=== PATIENT | male | born 1975 | race Caucasian/White ===

== ENCOUNTER 2025-06-06 22:27 | Inpatient (IN) | payer OTHER ==
[~2025-06-06] VITALS: Ht 182.9 cm; Wt 108.3 kg
[2025-06-06 23:00] VITALS: PULSE 103; RESP 27; O2SAT 93
[2025-06-06] MEDS: ALBUTEROL SULF 2.5 MG/0.5ML(0.5%) NEB SOLN NEB ONE (23:05)
[2025-06-06] MEDS: IPRATROPIUM BROM 0.5 MG/2.5ML INH SOL NEB ONE (23:05)
--- NOTE | 2025-06-06 23:28 | DVH ---
CHEST RADIOGRAPH INDICATION: SOB TECHNIQUE: Single frontal view of the chest was obtained COMPARISON: None FINDINGS: Lungs and pleural spaces are clear. Cardiac silhouette and humble are within normal limits. Bones and soft tissues demonstrate no significant abnormality. IMPRESSION: No acute disease.
[2025-06-06 23:43] LABS: Hematocrit 39.2 % (41.0-53.0); Hemoglobin 13.2 g/dL (13.5-17.5); Mean Corpuscular Hemoglobin 31.0 pg (28.0-32.0); Mean Corpuscular Volume 92.4 fL (80.0-100.0); Nucleated Red Blood Cells % 0.0 %
[2025-06-06 23:54] LABS: INR 1.04 (0.9-1.15); Prothrombin Time 11.0 sec (9.3-11.8)
[2025-06-07] VITALS (18 sets, daily range): BP systolic 114–139; BP diastolic 78–89; PULSE 64–94; RESP 16–20; TEMP 97.6–99.2; O2SAT 91–100
[2025-06-07 00:01] LABS: Alkaline Phosphatase 70 U/L (46-116); Anion Gap 10 (5-15); BUN/Creatinine Ratio 10.2 (10.0-20.0); Blood Urea Nitrogen 11 mg/dL (9-23); Calcium 9.9 mg/dL (8.7-10.4); Carbon Dioxide 23 mmol/L (20-31); Chloride 105 mmol/L (98-107); Potassium 3.9 mmol/L (3.5-5.1); Sodium 138 mmol/L (136-145); Total Protein 7.7 g/dL (5.7-8.2)
[2025-06-07 00:02] LABS: Bilirubin, Total 0.3 mg/dL (0.2-1.0)
[2025-06-07 00:04] LABS: Alanine Aminotransferase 48 U/L (7-40); Albumin 5.1 g/dL (3.2-4.8); Glucose 126 mg/dL (74-106)
[2025-06-07] MEDS: IOHEXOL 350 MG/ML 100ML IJ ONE (00:32)
--- NOTE | 2025-06-07 00:57 | ED.PDOC ---
SOB-HPI HPI Comments 49-year-old male brought in by , since the patient was having shortness of breath which started three months morning. Patient has been dealing with recurrent sinus infection over the last few days. Patient was having wheezing and struggling breathing. With the patient went to the urgent care and had two breathing treatments done, patient states he did have some moderate relief within just a few hours difficulty breathing came back. Patient arrived diaphoretic, tachypneic, struggling to breathe. O2 saturation of 90% on room air. Chief Complaint: Shortness of Breath Time Seen by MD: 22:36 Reviewed notes: Nurses Notes Information Source: Patient Mode of Arrival: Ambulatory Past Medical History PAST MEDICAL HISTORY: HTN Surgical History: Denies all surgeries Constitutional: denies: chills, diaphoresis, fatigue, fever, malaise, sweats, weakness, others EENTM: denies: blurred vision, double vision, ear bleeding, ear discharge, ear drainage, ear pain, ear ringing, eye pain, eye redness, hearing loss, mouth pain, mouth swelling, nasal discharge, nose bleeding, nose congestion, nose pain, photophobia, tearing, throat pain, throat swelling, voice changes, others Respiratory: reports: cough, SOB at rest, wheezing Cardiovascular: denies: chest pain, dizzy spells, diaphoresis, Dyspnea on exe rtion, edema, irregular heart beat, left arm pain, lightheadedness, palpitations, PND, syncope, others Gastrointestinal: denies: abdomen distended, abdominal pain, blood streaked bowels, constipated, diarrhea, dysphagia, difficulty swallowing, hematemesis, melena, nausea, poor appetite, poor fluid intake, rectal bleeding, rectal pain, vomiting, others Genitourinary: denies: burning, dysuria, flank pain, frequency, hematuria, incontinence, penile discharge, penile sore, pain, testicle pain, testicle swelling, urgency, others Neurological: denies: dizziness, fainting, headache, left sided numbness, left sided weakness, numbness, paresthesia, pre-existing deficit, right sided numbness, right sided weakness, seizure, speech problems, tingling, tremors, weakness, others Musculoskeletal: denies: back pain, gout, joint pain, joint swelling, muscle pain, muscle stiffness, neck pain, others Integumetry: denies: bruises, change in color, change in hair/nails, dryness, laceration, lesions, lumps, rash, wounds, others Allergic/Immunocompromised: denies: Difficulty Healing, Frequent Infections, Hives, Itching, others Physical Exam General Appearance: No Apparent Distress, Normal HEENT: Normal ENT Inspection, Pharynx Normal, TMs Normal Neck: Full Range of Motion, Non-Tender, Normal, Normal Inspection Respiratory: Chest Non-Tender, Respiratory Distress, Wheezing (Bilateral lung kuhn) Cardiovascular: No Edema, No JVD, No Murmur, No Gallop, Normal Peripheral Pulses, Regular Rate/Rhythm Breast Exam: Deferred Gastrointestinal: No Organomegaly, Non Tender, No Pulsatile Mass, Normal Bowel Sounds, Soft Genitalia: Deferred Pelvic: Deferred Rectal: Deferred Extremities: No calf tenderness, Normal capillary refill, Normal inspection, Normal range of motion, Non-tender, No pedal edema Musculoskeletal : Apperance: Normal Neurologic: Alert, cement mixer driver II-XII nml as Tested, No Motor Deficits, Normal Affect, Normal Mood, No Sensory Deficits Cerebellar Function: Normal Reflexes: Normal Skin: Dry, Normal Color, Warm Lymphatic: No Adenopathy Was a procedure done? Was a procedure done?: No Differential Dx Differential Diagnosis: Hyponatremia, Panic Attack, Pneumonia, Pulmonary Embolism, Respiratory Distress X-Ray, Labs, Meds, VS Vital Signs Date Time Temp Pulse Resp B/P (MAP) Pulse Ox O2 Delivery O2 Flow Rate FiO2 06/06/25 23:05 26 94 Nasal Cannula* 3 32 06/06/25 22:48 97 06/06/25 22:28 98.9 110 24 141/93 90 98.9 Lab Test 06/06/25 23:08 Range/Units White Blood Count 9.4 4.4-10.8 10^3/uL Red Blood Count 4.25 L 4.5-5.90 10^6/uL Hemoglobin 13.2 L 13.5-17.5 g/dL Hematocrit 39.2 L 41.0-53.0 % Mean Corpuscular Volume 92.4 80.0-100.0 fL Mean Corpuscular Hemoglobin 31.0 28.0-32.0 pg Mean Corpuscular Hemoglobin Concent 33.6 32.0-36.0 g/dL Red Cell Distribution Width 13.2 11.8-14.3 % Platelet Count 243 140-450 10^3/uL Mean Platelet Volume 8.7 6.9-10.8 fL Neutrophils (%) (Auto) 94.8 H 37.0-80.0 % Lymphocytes (%) (Auto) 1.7 L 10.0-50.0 % Monocytes (%) (Auto) 3.1 0.0-12.0 % Eosinophils (%) (Auto) 0.1 0.0-7.0 % Basophils (%) (Auto) 0.3 0.0-2.0 % Neutrophils # (Auto) 8.9 H 1.6-8.6 10 ^3/uL Lymphocytes # (Auto) 0.2 L 0.4-5.4 10 ^3/uL Monocytes # (Auto) 0.3 0-1.3 10 ^3/uL Eosinophils # (Auto) 0 0-0.8 10 ^3/uL Basophils # (Auto) 0 0-0.2 10 ^3/uL Nucleated Red Blood Cells 0.0 % Prothrombin Time 11.0 9.3-11.8 sec Prothrombin Time INR 1.04 0.9-1.15 D-Dimer, Quantitative 0.26 0.0-0.49 mg/L FEU Sodium Level 138 136-145 mmol/L Potassium Level 3.9 3.5-5.1 mmol/L Chloride Level 105 98-107 mmol/L Carbon Dioxide Level 23 20-31 mmol/L Anion Gap 10 5-15 Blood Urea Nitrogen 11 9-23 mg/dL Creatinine 1.08 0.700-1.30 mg/dL Glomerular Filtration Rate Calc 84 >90 mL/min BUN/Creatinine Ratio 10.2 10.0-20.0 Serum Glucose 126 H 74-106 mg/dL Lactic Acid Level 1.5 0.4-2.0 mmol/L Calcium Level 9.9 8.7-10.4 mg/dL Total Bilirubin 0.3 0.2-1.0 mg/dL Aspartate Amino Transferase (AST) 27 13-40 U/L Alanine Aminotransferase (ALT) 48 H 7-40 U/L Alkaline Phosphatase 70 46-116 U/L B-Type Natriuretic Peptide 32.60 0-100 pg/mL Total Protein 7.7 5.7-8.2 g/dL Albumin 5.1 H 3.2-4.8 g/dL Current Medications Medications (Trade) Dose Ordered Sig/Oralia Route Start Time Stop Time Status Last Admin Albuterol (Ventolin Medneb) 2.5 mg ONCE ONCE NEB 06/06/25 23:00 06/06/25 23:01 DC 06/06/25 23:05 Ipratropium Rarden (Atrovent Medneb) 0.5 mg ONCE ONCE NEB 06/06/25 23:00 06/06/25 23:01 DC 06/06/25 23:05 X-Ray, Labs, Meds, VS Comment Patient will be admitted for acute hypoxia and respiratory distress Patient unable to maintain O2 saturation above 90% on 4 L nasal cannula Pending CTA Negative dimer Chest x-ray was negative Patient does state he has good relief of the shortness of breath after breathing treatments Time of 1ST Reevaluation: 00:56 Reevaluation 1ST: Improved Patient Education/Counseling: Diagnosis, Treatment, Need For Follow Up Family Education/Counseling: Diagnosis SEPSIS Sepsis Screen Date sepsis recognized/suspect: Jun 06, 2025 Time Sepsis recognized/suspect: 2233 Recent Procedure: No On Antibiotic Therapy: Yes Respiratory Rate >20: Yes Heart Rate >90: Yes Temp<36 C (96.8 F) or >38.3 C: No SBP <90 or MAP <65 mmHG: No New Acute Mental Status Change: No Is the patient on CPAP, BIPAP,: No Physician Orders Chest Portable (06/06/25 22:36) Blood Culture (06/06/25 22:36) Electrocardigram (06/06/25 22:36) Ct Angio Chest Contrast (06/06/25 22:46) Drug Screen (06/06/25 22:46) Morphine Sulfate Injection (06/07/25 01:00) Ondansetron Hcl (Zofran) (06/07/25 01:00) Albuterol Medneb (Ventolin Medneb) (06/07/25 01:00) Ipratropium Medneb (Atrovent Medneb) (06/07/25 01:00) Methylprednisolone Sod Succ (Solu Medrol (06/07/25 01:00) Vital Signs Date Time Temp Pulse Resp B/P (MAP) Pulse Ox O2 Delivery O2 Flow Rate FiO2 06/06/25 23:05 26 94 Nasal Cannula* 3 32 06/06/25 22:48 97 06/06/25 22:28 98.9 110 24 141/93 90 98.9 Laboratory Tests Test 06/06/25 23:08 Lactic Acid Level 1.5 mmol/L (0.4-2.0) White Blood Count 9.4 10^3/uL (4.4-10.8) Medications Medications Dose Ordered Sig/Oralia Route Start Time Stop Time Status Last Admin Dose Admin Albuterol 2.5 mg ONCE ONCE NEB 06/06/25 23:00 06/06/25 23:01 DC 06/06/25 23:05 Ipratropium Rarden 0.5 mg ONCE ONCE NEB 06/06/25 23:00 06/06/25 23:01 DC 06/06/25 23:05 Departure 1 Departure Time of Disposition: 00:55 Impression: Primary Impression: Respiratory distress Additional Impressions: Hypoxia Bronchitis Disposition: 01 HOME / SELF CARE / HOMELESS Condition: Fair Discharged With: Self Critical Care Note Critical Care Time?: No Stability Stability form required: No Heart Score Heart Score: Heart Score Response (Comments) Value History N/A 0 EKG N/A 0 Age N/A 0 Risk Factors N/A 0 Troponin N/A 0 Total 0 BRITTANY MONTANAP Jun 07, 2025 00:57
[2025-06-07] MEDS: IPRATROPIUM BROM 0.5 MG/2.5ML INH SOL NEB ONE (01:08)
[2025-06-07] MEDS: ALBUTEROL SULF 2.5 MG/0.5ML(0.5%) NEB SOLN NEB ONE (01:08)
[2025-06-07] MEDS: MORPHINE SULFATE 4 MG/ML SYR/VIAL IV ONE (01:16)
[2025-06-07] MEDS: methylPREDNISolone SOD SUCC 125 MG/2 ML VL IM ONE (01:17)
--- NOTE | 2025-06-07 01:17 | ECG ---
[facility] Test Date: 2025-06-06 Test Time: 22:48:15 Pat Name: SARA NOE Department: [facility] ED Room: 0209T Gender: M [employer]: : 1975 Requested By: LIANET PAREKH Order Number: [id number] Reading MD: Reggie Ambrocio Measurements Intervals Correll Rate: 97 P: 71 [place]: 165 QRS: 78 QRSD: 93 T: 65 QT: 365 QTc: 464 Interpretive Statements Sinus rhythm Abnormal R-wave progression, early transition Electronically Signed On 06-10-2025 15:21:51 PST by Reggie Ambrocio Please click the below link to view image of tracing.
[2025-06-07] MEDS: ONDANSETRON HCL 4 MG/2 ML VIAL IV ONE (01:21)
--- NOTE | 2025-06-07 01:29 | DVH ---
CTA Chest with intravenous contrast INDICATION: sob COMPARISON: XY CHEST PORTABLE on DOS: 06/06/25 TECHNIQUE: Multidetector spiral CTA of the chest was performed of the chest with intravenous contrast. PULMONARY ANGIOGRAPHY PROTOCOL was utilized using a bolus- tracking technique centered on the main pulmonary artery. Axial, coronal and sagittal multiplanar and MIP reformats were performed. Radiation Dose : 1. Chest: CTDI volume is 27.03 mGy. Dose-length product is 1016.82 mGy*cm The dose indicators for CT are the volume Computed Tomography (CT) Dose Index (CTDIvol) and the Dose Length Product (DLP), and are measured in units of mGy and mGy-cm, respectively. These indicators are not patient dose, but values generated from the CT scanner acquisition factors. The report includes radiation exposure data for exposures received during this examination. FINDINGS: Pulmonary artery: No pulmonary embolism Lower neck: Normal thyroid. Lungs: No focal consolidation, pleural effusion or pneumothorax. Heart/Vascular Structures: Normal heart size. No pericardial effusion. Lymph Nodes: No adenopathy Pleura: No pleural effusion or significant pneumothorax. Musculoskeletal: No acute osseous abnormality. Soft tissues: Normal. Upper abdomen: Limited portions of the upper abdomen are unremarkable. IMPRESSION: No pulmonary embolus or other acute abnormality.
[2025-06-07] MEDS ORDERED: DOCUSATE SOD 100 MG CAP PO PRN (02:00)
[2025-06-07] MEDS ORDERED: ONDANSETRON HCL 4 MG/2 ML VIAL IV PRN (02:00)
[2025-06-07] MEDS ORDERED: ACETAMINOPHEN 325 MG TAB PO PRN (02:00)
[2025-06-07] MEDS: SODIUM CHLORIDE 0.9% 1,000 ML IV SCH (02:30)
--- NOTE | 2025-06-07 02:37 | DVHHP2 ---
History of Present Illness Reason for Visit: Acute respiratory distress History of Present Illness The patient is a 49-year-old male with past medical history of hypertension and hyperlipidemia who presented to [facility] ED with complaint of shortness of breaths. Patient reports that he has been experiencing difficulty breathing associated with cough, wheezing, increased work of breathing, getting worse that prompted this visit. Patient was seen and evaluated in the ED, laboratory data shows WBC 9.4, hemoglobin 13.2, hematocrit 39.2, platelets 243, sodium 138, potassium 3.9, BUN 11, creatinine 1.08, GFR 84, glucose 124, calcium 9.9, BNP 32.60, D-dimer 0.26, AST 27, ALT 48, blood pressure 115/69, heart rate 97, temperature 98.9 F, O2 saturation 90% on oxygen. Chest x-ray show no acute disease. Patient was started on IV Solu-Medrol, please see medication orders section in the computer. On my assessment, patient denied chest pain, no headache, dizziness, diaphoresis, currently on oxygen, no diarrhea, nausea, vomiting, fever, no chills. Patient was admitted for further evaluation and medical management. Past Medical History HTN, HLD Past Surgical History Denies all surgeries Family History Reviewed, noncontributory to the management of this case. Past Social History The patient lives at home, denies smoking, alcohol or illicit drugs abuse. Review of Systems Constitutional: Yes: Weakness; No: Fever, Chills, Sweats, Malaise, Other Eyes: No: Pain, Vision change, Conjunctivae inflammation, Eyelid inflammation, Other, Redness ENT: No: Ear pain, Ear discharge, Nose pain, Nose discharge, Nose congestion, Mouth pain, Mouth swelling, Throat pain, Throat swelling, Other Respiratory: Cough, Shortness of breath, Wheezing, Other (SOB at rest); No: Dry, SOB with excertion, Hemoptysis, Pleuritic Pain, Sputum, Wheezing Cardiovascular: No: Chest Pain, Palpitations, Orthopnea, Paroxysmal Noc. Dyspnea, Edema, Lt Headedness, Other Gastrointestinal: No: Nausea, Vomiting, Abdominal Pain, Diarrhea, Constipation, Melena, Hematochezia, Other Genitourinary: No Dysuria, No Frequency, No Incontinence, No Hematuria, No Retention, No Other Musculoskeletal: No: other, neck pain, shoulder pain, arm pain, back pain, hand pain, leg pain, foot pain Skin: No: Rash, Lesions, Jaundice, Bruising, Other Neurological: No: Weakness, Numbness, Incoordination, Change in speech, Confusion, Seizures, Other Allergies: Coded Allergies: Aspirin (Verified Allergy, Unknown, 06/06/25) Medications Current Medications Medications Dose Ordered Sig/Oralia Route Start Time Stop Time Status Last Admin Dose Admin Methylprednisolone Sodium Succinate 40 mg Q8HR IV 06/07/25 06:00 Famotidine 20 mg Q12HR IV 06/07/25 10:00 Albuterol 2.5 mg Q4HPRN PRN NEB 06/07/25 02:00 Ipratropium [place] 0.5 mg Q4HPRN PRN NEB 06/07/25 02:00 Metoprolol Tartrate 25 mg BID PO 06/07/25 10:00 Sodium Chloride 1,000 ml @ 60 mls/hr [id number] IV 06/07/25 02:00 06/07/25 02:30 60 MLS/HR Acetaminophen/ Hydrocodone Bitart 1 tab Q4HP PRN PO 06/07/25 02:00 Ondansetron HCl 4 mg Q4HP PRN IV 06/07/25 02:00 Docusate Sodium 100 mg BIDPRN PRN PO 06/07/25 02:00 Acetaminophen 650 mg Q6HP PRN PO 06/07/25 02:00 Exam Vital Signs Vital Signs Date Time Temp Pulse Resp B/P (MAP) Pulse Ox O2 Delivery O2 Flow Rate FiO2 06/07/25 01:57 96 19 117/62 06/07/25 01:08 90 Nasal Cannula* 3 32 06/06/25 22:28 98.9 98.9 General Appearance: Alert, Oriented X3, Cooperative, No acute distress HEENT: Atraumatic, PERRLA, EOMI, Mucous membr. moist/pink Respiratory: Normal air movement, Other (Wheezing) Cardiovascular: Regular rate, Normal S1, Normal S2, No murmurs Abdominal: Normal bowel sounds, Soft, No tenderness, No hepatospenomegaly, No masses Extremities: No clubbing, No cyanosis, No edema, Normal pulses, No tenderness/swelling Skin: No rashes, No significant lesion Neuro: Normal gait, Strength at 5/5 X4 ext, Normal tone, Sensation intact, Cranial nerves 3-12 NL, Reflexes 2+ Psych/Mental Status: Mental status NL, Mood NL Labs/Xrays Labs Test 06/06/25 23:08 Range/Units White Blood Count 9.4 4.4-10.8 10^3/uL Red Blood Count 4.25 L 4.5-5.90 10^6/uL Hemoglobin 13.2 L 13.5-17.5 g/dL Hematocrit 39.2 L 41.0-53.0 % Mean Corpuscular Volume 92.4 80.0-100.0 fL Mean Corpuscular Hemoglobin 31.0 28.0-32.0 pg Mean Corpuscular Hemoglobin Concent 33.6 32.0-36.0 g/dL Red Cell Distribution Width 13.2 11.8-14.3 % Platelet Count 243 140-450 10^3/uL Mean Platelet Volume 8.7 6.9-10.8 fL Neutrophils (%) (Auto) 94.8 H 37.0-80.0 % Lymphocytes (%) (Auto) 1.7 L 10.0-50.0 % Monocytes (%) (Auto) 3.1 0.0-12.0 % Eosinophils (%) (Auto) 0.1 0.0-7.0 % Basophils (%) (Auto) 0.3 0.0-2.0 % Neutrophils # (Auto) 8.9 H 1.6-8.6 10 ^3/uL Lymphocytes # (Auto) 0.2 L 0.4-5.4 10 ^3/uL Monocytes # (Auto) 0.3 0-1.3 10 ^3/uL Eosinophils # (Auto) 0 0-0.8 10 ^3/uL Basophils # (Auto) 0 0-0.2 10 ^3/uL Nucleated Red Blood Cells 0.0 % Prothrombin Time 11.0 9.3-11.8 sec Prothrombin Time INR 1.04 0.9-1.15 D-Dimer, Quantitative 0.26 0.0-0.49 mg/L FEU Sodium Level 138 136-145 mmol/L Potassium Level 3.9 3.5-5.1 mmol/L Chloride Level 105 98-107 mmol/L Carbon Dioxide Level 23 20-31 mmol/L Anion Gap 10 5-15 Blood Urea Nitrogen 11 9-23 mg/dL Creatinine 1.08 0.700-1.30 mg/dL Glomerular Filtration Rate Calc 84 >90 mL/min BUN/Creatinine Ratio 10.2 10.0-20.0 Serum Glucose 126 H 74-106 mg/dL Lactic Acid Level 1.5 0.4-2.0 mmol/L Calcium Level 9.9 8.7-10.4 mg/dL Total Bilirubin 0.3 0.2-1.0 mg/dL Aspartate Amino Transferase (AST) 27 13-40 U/L Alanine Aminotransferase (ALT) 48 H 7-40 U/L Alkaline Phosphatase 70 46-116 U/L B-Type Natriuretic Peptide 32.60 0-100 pg/mL Total Protein 7.7 5.7-8.2 g/dL Albumin 5.1 H 3.2-4.8 g/dL PATIENT: SARA NOE ACCT: [id number] UNIT: [id number] : 1975 LOC: ER ROOM / BED: / AGE / SEX: 49 / M ADM STATUS: REG ER SERVICE 45 ORDERING PHYSICIAN: BRITTANY MONTANA PROCEDURE(s): CTACH - CT ANGIO CHEST CONTRAST REASON: sob ORDER NUMBER(s): [id number], ACCESSION NUMBER(s): [id number] CTA Chest with intravenous contrast INDICATION: sob COMPARISON: XY CHEST PORTABLE on DOS: 06/06/25 TECHNIQUE: Multidetector spiral CTA of the chest was performed of the chest with intravenous contrast. PULMONARY ANGIOGRAPHY PROTOCOL was utilized using a bolus- tracking technique centered on the main pulmonary artery. Axial, coronal and sagittal multiplanar and MIP reformats were performed. Radiation Dose : 1. Chest: CTDI volume is 27.03 mGy. Dose-length product is 1016.82 mGy*cm The dose indicators for CT are the volume Computed Tomography (CT) Dose Index (CTDIvol) and the Dose Length Product (DLP), and are measured in units of mGy and mGy-cm, respectively. These indicators are not patient dose, but values generated from the CT scanner acquisition factors. The report includes radiation exposure data for exposures received during this examination. FINDINGS: Pulmonary artery: No pulmonary embolism Lower neck: Normal thyroid. Lungs: No focal consolidation, pleural effusion or pneumothorax. Heart/Vascular Structures: Normal heart size. No pericardial effusion. Lymph Nodes: No adenopathy Pleura: No pleural effusion or significant pneumothorax. Musculoskeletal: No acute osseous abnormality. Soft tissues: Normal. Upper abdomen: Limited portions of the upper abdomen are unremarkable. IMPRESSION: No pulmonary embolus or other acute abnormality. ORDERING PHYSICIAN: LIANET PAREKH MD PROCEDURE(s): CXRP - CHEST PORTABLE REASON: SOB ORDER NUMBER(s): [id number], ACCESSION NUMBER(s): [id number] CHEST RADIOGRAPH INDICATION: SOB TECHNIQUE: Single frontal view of the chest was obtained COMPARISON: None FINDINGS: Lungs and pleural spaces are clear. Cardiac silhouette and humble are within normal limits. Bones and soft tissues demonstrate no significant abnormality. IMPRESSION: No acute disease. SEPSIS Sepsis Screen Date sepsis recognized/suspect: Jun 06, 2025 Time Sepsis recognized/suspect: 2233 Recent Procedure: No On Antibiotic Therapy: Yes Respiratory Rate >20: Yes Heart Rate >90: Yes Temp<36 C (96.8 F) or >38.3 C: No SBP <90 or MAP <65 mmHG: No New Acute Mental Status Change: No Is the patient on CPAP, BIPAP,: No Physician Orders Chest Portable (06/06/25 22:36) Blood Culture (06/06/25 22:36) Ct Angio Chest Contrast (06/06/25 22:46) Drug Screen (06/06/25 22:46) Complete Blood Count (06/07/25 04:00) Comprehensive Metabolic Panel (06/07/25 04:00) Methylprednisolone Sod Succ (Solu Medrol (06/07/25 06:00) Famotidine Injection (Pepcid Injection) (06/07/25 10:00) Albuterol Medneb (Ventolin Medneb) (06/07/25 02:00) Ipratropium Medneb (Atrovent Medneb) (06/07/25 02:00) Metoprolol Tartrate Tablet (Lopressor Ta (06/07/25 10:00) Allergies (06/07/25 01:49) Code Status (06/07/25 01:49) Sodium Chloride 0.9% (06/07/25 02:00) Oxygen Per Hour (06/07/25 01:49) Hydrocodone-Acet 5/325mg Tab ([place] 5/32 (06/07/25 02:00) Ondansetron Hcl (Zofran) (06/07/25 02:00) Docusate Sodium Capsule (Colace Capsule) (06/07/25 02:00) Complete Blood Count (06/08/25 04:00) Comprehensive Metabolic Panel (06/08/25 04:00) Cardiac Diet-2gna,Lofat,Lochol (06/07/25 Breakfast) Condition: Serious (06/07/25 01:49) Acetaminophen Tablet (Tylenol Tablet) (06/07/25 02:00) Bedrest With Bathroom Privileg (06/07/25 01:49) Sequential Compression Device (06/07/25 ) Admit (06/07/25 02:35) Nitroglycerin Sublingual (Ntrostat Subli (06/07/25 02:45) Morphine Sulfate Injection (06/07/25 02:45) Stat Ekg For Chest Pain (06/07/25 02:35) Notify Of Changes From Base (06/07/25 02:35) Slag Mixer For 24 Hours (06/07/25 02:35) Emergency Dysrhythmia Protocol (06/07/25 02:35) Rhythm Strips Once Every Shift (06/07/25 02:35) Oxygen By Nasal Cannula (06/07/25 02:35) Vital Signs Date Time Temp Pulse Resp B/P (MAP) Pulse Ox O2 Delivery O2 Flow Rate FiO2 06/07/25 01:57 96 19 117/62 06/07/25 01:16 107 16 115/69 06/07/25 01:08 22 90 Nasal Cannula* 3 32 06/06/25 23:05 26 94 Nasal Cannula* 3 32 06/06/25 22:48 97 06/06/25 22:28 98.9 110 24 141/93 90 98.9 Laboratory Tests Test 06/06/25 23:08 Lactic Acid Level 1.5 mmol/L (0.4-2.0) White Blood Count 9.4 10^3/uL (4.4-10.8) Medications Medications Dose Ordered Sig/Oralia Route Start Time Stop Time Status Last Admin Dose Admin Albuterol 2.5 mg ONCE ONCE NEB 06/06/25 23:00 06/06/25 23:01 DC 06/06/25 23:05 2.5 MG Albuterol 2.5 mg ONCE ONCE NEB 06/07/25 01:00 06/07/25 01:01 DC 06/07/25 01:08 2.5 MG Ipratropium [place] 0.5 mg ONCE ONCE NEB 06/06/25 23:00 06/06/25 23:01 DC 06/06/25 23:05 0.5 MG Ipratropium [place] 0.5 mg ONCE ONCE NEB 06/07/25 01:00 06/07/25 01:01 DC 06/07/25 01:08 0.5 MG Methylprednisolone Sodium Succinate 125 mg ONCE ONCE IM 06/07/25 01:00 06/07/25 01:01 DC 06/07/25 01:17 125 MG Morphine Sulfate 4 mg ONCE ONCE IV 06/07/25 01:00 06/07/25 01:01 DC 06/07/25 01:16 4 MG Ondansetron HCl 4 mg ONCE ONCE IV 06/07/25 01:00 06/07/25 01:01 DC 06/07/25 01:21 4 MG Sodium Chloride 1,000 ml @ 60 mls/hr [id number] IV 06/07/25 02:00 06/07/25 02:30 60 MLS/HR Assessment/Plan Assessment/Plan Acute respiratory distress Bronchitis Acute hypoxic respiratory failure Plan 1. Admit to telemetry unit 2. Breathing treatment 3. Pain control management 4. Management of fluids and electrolytes 5. Consultation for hospitalist 6. Diagnostic tests chest x-ray 7. DVT prophylaxis-on SCDs 8. Repeat labs CBC, CMP in a.m. 9. Continue with current medical management 10. Treatment plan discussed with patient and RN. Patient verbalized understanding. Plan discussed with: Patient, Other (RN) My Orders Orders - NILSON MACK DNP Procedure Category Date Status Time Complete Blood Count LAB 06/07/25 Logged 04:00 Comprehensive LAB 06/07/25 Logged Metabolic Panel 04:00 Methylprednisolone PHA 06/07/25 In Process Sod Succ (Solu Medrol 06:00 Famotidine Injection PHA 06/07/25 In Process (Pepcid Injection) 10:00 Albuterol Medneb PHA 06/07/25 In Process (Ventolin Medneb) 02:00 Ipratropium Medneb PHA 06/07/25 In Process (Atrovent Medneb) 02:00 Metoprolol Tartrate PHA 06/07/25 In Process Tablet (Lopressor Ta 10:00 Allergies SETH 06/07/25 In Process 01:49 Code Status CODE 06/07/25 Transmitted 01:49 Sodium Chloride 0.9% PHA 06/07/25 In Process 02:00 Oxygen Per Hour RT 06/07/25 Transmitted 01:49 Hydrocodone-Acet PHA 06/07/25 In Process 5/325mg Tab ([place] 02:00 Ondansetron Hcl PHA 06/07/25 In Process (Zofran) 02:00 Docusate Sodium PHA 06/07/25 In Process Capsule (Colace 02:00 Complete Blood Count LAB 06/08/25 Verified 04:00 Comprehensive LAB 06/08/25 Verified Metabolic Panel 04:00 Cardiac DIET 06/07/25 Transmitted Diet-2gna,Lofat,Lochol Breakfast Condition: Serious SETH 06/07/25 In Process 01:49 Acetaminophen Tablet PHA 06/07/25 In Process (Tylenol Tablet) 02:00 Bedrest With Bathroom SETH 06/07/25 In Process Privileg 01:49 Sequential SETH 06/07/25 In Process Compression Device Admit ADMIT 06/07/25 Verified 02:35 Nitroglycerin [facility] 06/07/25 Verified Sublingual (Ntrostat 02:45 Morphine Sulfate [facility] 06/07/25 Verified Injection 02:45 Stat Ekg For Chest [facility] 06/07/25 Verified Pain 02:35 Notify Md Of Changes [facility] 06/07/25 Verified From Base 02:35 Slag Mixer For [facility] 06/07/25 Verified 24 Hours 02:35 Emergency Dysrhythmia [facility] 06/07/25 Verified Protocol 02:35 Rhythm Strips Once [facility] 06/07/25 Verified Every Shift 02:35 Oxygen By Nasal RT 06/07/25 Verified Cannula 02:35 Problem List: (1) Acute respiratory distress (2) Bronchitis (3) Acute hypoxic respiratory failure Date of Service: Jun 07, 2025 Billing Provider: NILSON MACK DNP Common Visit Codes: [id number] INP/OBS CARE (HIGH) NILSON MACK DNP Jun 07, 2025 02:37
[2025-06-07] MEDS ORDERED: NITROGLYCERIN 0.4 MG SL TAB SL PRN (02:45)
[2025-06-07] MEDS ORDERED: MORPHINE SULFATE 4 MG/ML SYR/VIAL IV PRN (02:45)
[2025-06-07] MEDS: methylPREDNISolone SOD SUCC 40 MG/ML VL IV SCH ×2 (05:25→21:22)
[2025-06-07] MEDS: HYDROcodone-ACET 5/325MG TAB PO PRN (05:25)
[2025-06-07] MEDS: IPRATROPIUM BROM 0.5 MG/2.5ML INH SOL NEB PRN (06:16)
[2025-06-07] MEDS: ALBUTEROL SULF 2.5 MG/0.5ML(0.5%) NEB SOLN NEB PRN (06:16)
[2025-06-07 07:47] LABS: Hematocrit 36.6 % (41.0-53.0); Hemoglobin 12.5 g/dL (13.5-17.5); Mean Corpuscular Hemoglobin 31.2 pg (28.0-32.0); Mean Corpuscular Volume 91.6 fL (80.0-100.0); Nucleated Red Blood Cells % 0.0 %
[2025-06-07 07:53] LABS: Alkaline Phosphatase 65 U/L (46-116); Anion Gap 11 (5-15); BUN/Creatinine Ratio 10.5 (10.0-20.0); Bilirubin, Total 0.3 mg/dL (0.2-1.0); Blood Urea Nitrogen 12 mg/dL (9-23); Calcium 9.5 mg/dL (8.7-10.4); Carbon Dioxide 22 mmol/L (20-31); Chloride 105 mmol/L (98-107); Potassium 4.2 mmol/L (3.5-5.1); Sodium 138 mmol/L (136-145); Total Protein 7.3 g/dL (5.7-8.2)
[2025-06-07 07:57] LABS: Alanine Aminotransferase 41 U/L (7-40); Albumin 4.8 g/dL (3.2-4.8); Glucose 176 mg/dL (74-106)
[2025-06-07] MEDS: IPRATROPIUM BROM 0.5 MG/2.5ML INH SOL NEB SCH (08:45)
[2025-06-07] MEDS: LEVALBUTEROL HCL 1.25 MG/3 ML NEB NEB SCH (08:45)
[2025-06-07] MEDS: BUDESONIDE (INHALATION) 0.5 MG/2 ML NEB NEB SCH (09:34)
[2025-06-07] MEDS: PANTOPRAZOLE 40 MG/10 ML VIAL INJ IV SCH (10:00)
[2025-06-07] MEDS: METOPROLOL TARTRATE 25 MG TAB PO SCH (10:00)
[2025-06-07] MEDS ORDERED: FAMOTIDINE (10MG/ML) 2ML VL IV SCH (10:00)
--- NOTE | 2025-06-07 10:24 | DVHPNRES ---
Progress Note Date Seen: Jun 07, 2025 Resident Creating Document: CRUZ BRITTON RESIDENT Has the PT tested + for MRSA If YES, has PT been informed?: No Medical Necessity Reason Pt with a Central, PICC or Fol: No Subjective Review of Systems Bryson Mcguire is a 49-year-old male patient, with past medical history of childhood asthma, hypertension and hyperlipidemia. The patient came to [facility] ED with complaint of 3 days of progressively worsen dyspnea. The patient reports that he has been experiencing difficulty breathing associated with cough, wheezing, increased work of breathing. On further questioning, the patient 3 weeks of sinus infection with nasal congestion. The patient also reported recent travel where he was exposed to sick contacts on a plane. The patien reports worsen of his symptoms, this prompted his visit to the ED. In the ED the patient was seen and evaluated, his O2sat was 90% on room air, the laboratory data showed WBC 9.4, hemoglobin 13.2, BNP 32.60, D-dimer 0.26, blood pressure 115/69, heart rate 97, temperature 98.9 F, Lactic acid 1.5. Chest x- ray show no acute disease. Patient was started on IV Solu-Medrol. The patient denied chest pain, no headache, dizziness, diaphoresis, no diarrhea, nausea, vomiting, fever, no chills. Patient was admitted for further evaluation and medical management. Past Medical History HTN, HLD, Childhood asthma Past Surgical History Denies all surgeries Family History Reviewed, noncontributory to the management of this case. Past Social History The patient lives at home, denies smoking, alcohol or illicit drugs abuse. Hospital course: On 06/07/25, the patient was examined and evaluated at bedside, vital signs, labs and chart was reviewed. Patient reports shortness of breath, oxygen was increased today to 4 L via NC, Osat 96%. Sputum cultures were requested. Patient continue with IV antibiotics, Medneb, Solu-Medrol. and Medneb scheduled. Influenza test result is positive, patient was placed in isolation. Oseltamivir was started. We will continue following up the progress of with this patient. ROS: Constitutional: Yes: generalized weakness; No: Fever, Chills, Sweats, Malaise, Other Eyes: No: Pain, Vision change, Conjunctivae inflammation, Eyelid inflammation, Other, Redness ENT: No: Ear pain, Ear discharge, Nose pain, Nose discharge, Nose congestion, Mouth pain, Mouth swelling, Throat pain, Throat swelling, Other Respiratory: dry Cough, Shortness of breath, Wheezing, Other (SOB at rest); No: Dry, SOB with excertion, Hemoptysis, Pleuritic Pain, Sputum, Wheezing Cardiovascular: No: Chest Pain, Palpitations, Orthopnea, Paroxysmal Noc. Dyspnea, Edema, Lt Headedness, Other Gastrointestinal: No: Nausea, Vomiting, Abdominal Pain, Diarrhea, Constipation, Melena, Hematochezia, Other Genitourinary: No Dysuria, No Frequency, No Incontinence, No Hematuria, No Retention, No Other Musculoskeletal: No: other, neck pain, shoulder pain, arm pain, back pain, hand pain, leg pain, foot pain Skin: No: Rash, Lesions, Jaundice, Bruising, Other Neurological: No: Weakness, Numbness, Incoordination, Change in speech, Confusion, Seizures, Other Objective vital signs Vital Sign Date Time Temp Pulse Resp B/P (MAP) Pulse Ox O2 Delivery O2 Flow Rate FiO2 06/07/25 10:00 80 114/78 06/07/25 09:40 18 99 06/07/25 09:34 Nasal Cannula* 3 32 06/07/25 09:10 98.6 98.6 Total Intake and Output 06/06/25 06/06/25 06/07/25 15:00 23:00 07:00 Intake Total 60 ml Balance 60 ml medications Current Medications Medications Dose Ordered Sig/Oralia Route Start Time Stop Time Status Last Admin Dose Admin Methylprednisolone Sodium Succinate 40 mg Q8HR IV 06/07/25 06:00 06/07/25 05:25 40 MG Metoprolol Tartrate 25 mg BID PO 06/07/25 10:00 06/07/25 10:00 25 MG Sodium Chloride 1,000 ml @ 60 mls/hr [id number] IV 06/07/25 02:00 06/07/25 02:30 60 MLS/HR Acetaminophen/ Hydrocodone Bitart 1 tab Q4HP PRN PO 06/07/25 02:00 06/07/25 05:25 1 TAB Ondansetron HCl 4 mg Q4HP PRN IV 06/07/25 02:00 Docusate Sodium 100 mg BIDPRN PRN PO 06/07/25 02:00 Acetaminophen 650 mg Q6HP PRN PO 06/07/25 02:00 Nitroglycerin 0.4 mg Q5MINP PRN SL 06/07/25 02:45 Morphine Sulfate 2 mg Q30M PRN IV 06/07/25 02:45 Levalbuterol HCl 1.25 mg Q6HR NEB 06/07/25 08:45 Ipratropium [place] 0.5 mg Q6HR NEB 06/07/25 08:45 Budesonide 0.25 mg BID NEB 06/07/25 10:00 06/07/25 09:34 0.25 MG Pantoprazole Sodium 40 mg DAILY IV 06/07/25 10:00 06/07/25 10:00 40 MG Doxycycline Hyclate 100 ml @ 50 mls/hr Q12HR IV 06/07/25 10:17 Examination General Appearance: Alert, Oriented X3, Cooperative, mild distress, on O2 via NC 4L HEENT: Atraumatic, PERRLA, EOMI, Mucous membr. moist/pink Respiratory: Bilateral roncus and wheezing. Cardiovascular: Regular rate, Normal S1, Normal S2, No murmurs Abdominal: Normal bowel sounds, Soft, No tenderness, No hepatospenomegaly, No masses Extremities: No clubbing, No cyanosis, No edema, Normal pulses, No tenderness/swelling Skin: No rashes, No significant lesion Neuro: Normal gait, Strength at 5/5 X4 ext, Normal tone, Sensation intact, Cranial nerves 3-12 NL, Reflexes 2+ Psych/Mental Status: Mental status NL, Mood NL laboratory and microbiology Laboratory Tests 06/07/25 07:20 Test 06/07/25 07:20 Range/Units Serum Glucose 176 H 74-106 mg/dL Problem List/Assessment/Plan Problem List/Assessment/Plan #Acute hypoxic respiratory failure likely due to viral pneumonia #Acute Influenza (type a positive) #Acute sinus infection #Possible acute asthma exacerbation #SIRS without AOD Influenza test positive IV fluids Oseltamivir 75mg Medneb: levalbuterol, Ipatropium, mucomyst Q4H Methylprednisolone 40mg po bid Sputum culture #Ruled out acute PE CT angiogram negative D-Dimer: negative EKG #Chronic Hypertensive heart disease with possible systolic disfunction. Metoprolol 25mg #Chronic Hyperlipidemia Atorvastatin 40mg at night #Chronic Minimal Change disease Hold prednisone due to ongoing methylprednisolone Monitor Crea/BUN Avoid neprhotoxic drugs #Obesity BMI: 32.7 Counseling about healthy life style Diet Cardiac diet DVT prophylaxis: SCD GI prophylaxis Protonix: pantoprazole Code status: full code Disposition: Telemetry PCP: Dr. Macario Patient's status and plan discussed with the patient >30min. Case discussed with Dr. Loredo Plan discussed with: Patient My Orders My Orders Orders - CRUZ BRITTON Procedure Category Date Status Time Doxycycline PHA 06/07/25 In Process 100mg/100ml 10:17 Visit Coding STANDARD RES Billing Provider: RYLAN DOWLING MD Date of Service if different f: Jun 07, 2025 Common Visit Codes: [id number] INP/OBS CARE(HIGH) CRUZ BRITTON RESIDENT Jun 07, 2025 10:24
[2025-06-07] MEDS: DOXYCYCLINE 100MG/100ML 100 ML IV SCH (11:21)
[2025-06-07 14:24] LABS: COVID19 ANTIGEN SOFIA FIA NEGATIVE (NEGATIVE)
[2025-06-07 16:22] LABS: Urine Protein, UAD Negative (Negative)
[2025-06-07 16:38] LABS: Opiate Scree,Urine Neg (NEGATIVE)
[2025-06-07 16:39] LABS: Amphetamine Screen, Urine Neg (NEGATIVE); Barbiturate Scree,Urine Neg (NEGATIVE); Benzodiazephine Screen, Urine Neg (NEGATIVE); Cannabinoid Screen, Urine Neg (NEGATIVE); Cocaine Screen, Urine Neg (NEGATIVE); Phencyclidine Screen, Urine Neg (NEGATIVE)
[2025-06-07] MEDS: MORPHINE SULFATE 4 MG/ML SYR/VIAL IV PRN (16:57)
[2025-06-07] MEDS: ACETYLCYSTEINE 20%(200MG/ML) SOL 4ML NEB SCH (17:35)
[2025-06-07] MEDS: PROMETHAZINE HCL 6.25 MG/5 ML ORAL SYRUP PO ONE (17:52)
[2025-06-07] MEDS: PROMETHAZINE HCL 6.25 MG/5 ML ORAL SYRUP PO SCH ×2 (18:05→22:00)
[2025-06-07] MEDS: OSELTAMIVIR 75 MG CAP PO SCH (21:21)
[2025-06-07] MEDS ORDERED: PROMETHAZINE HCL 6.25 MG/5 ML ORAL SYRUP PO SCH (22:00)
[2025-06-08] VITALS (17 sets, daily range): BP systolic 100–142; BP diastolic 62–83; PULSE 62–95; RESP 15–19; TEMP 97–98.4; O2SAT 95–100
[2025-06-08 07:04] LABS: Hematocrit 37.0 % (41.0-53.0); Hemoglobin 12.3 g/dL (13.5-17.5); Mean Corpuscular Hemoglobin 30.7 pg (28.0-32.0); Mean Corpuscular Volume 92.5 fL (80.0-100.0); Nucleated Red Blood Cells % 0.0 %
[2025-06-08 08:47] LABS: Alanine Aminotransferase 40 U/L (7-40); Alkaline Phosphatase 58 U/L (46-116); Anion Gap 12 (5-15); BUN/Creatinine Ratio 12.2 (10.0-20.0); Blood Urea Nitrogen 16 mg/dL (9-23); Calcium 10.0 mg/dL (8.7-10.4); Carbon Dioxide 24 mmol/L (20-31); Chloride 104 mmol/L (98-107); Potassium 4.6 mmol/L (3.5-5.1); Sodium 140 mmol/L (136-145)
[2025-06-08 08:48] LABS: Glucose 133 mg/dL (74-106); Total Protein 6.8 g/dL (5.7-8.2)
[2025-06-08 08:49] LABS: Albumin 4.5 g/dL (3.2-4.8); Bilirubin, Total 0.2 mg/dL (0.2-1.0)
--- NOTE | 2025-06-08 18:01 | DVHPN2 ---
Reviewed: H&P Changes from previous H/P or p: No Changes General: Per HPI Eyes: No Pain, No Vision change, No Conjunctivae inflammation, No Eyelid inflammation, No Other, No Redness ENT: No Ear pain, No Ear discharge, No Nose pain, No Nose discharge, No Nose congestion, No Mouth pain, No Mouth swelling, No Throat pain, No Throat swelling, No Other Cardiovascular: No Chest Pain, No Palpitations, No Orthopnea, No Paroxysmal Noc. Dyspnea, No Edema, No Lt Headedness, No Other Respiratory: Cough; No Dry; Shortness of breath; No SOB with excertion; W heezing; No Hemoptysis, No Pleuritic Pain, No Sputum; Other (SOB at rest) Gastrointestinal: No Nausea, No Vomiting, No Abdominal Pain, No Diarrhea, No Constipation, No Melena, No Hematochezia, No Other Genitourinary: No Dysuria, No Frequency, No Incontinence, No Hematuria, No Retention, No Other Musculoskeletal: No other, No neck pain, No shoulder pain, No arm pain, No back pain, No hand pain, No leg pain, No foot pain Skin: No Rash, No Lesions, No Jaundice, No Bruising, No Other Objective Vitals Vital Signs Date Time Temp Pulse Resp B/P (MAP) Pulse Ox O2 Delivery O2 Flow Rate FiO2 06/08/25 17:00 97.0 69 19 118/79 (92) 97 97.0 06/08/25 11:13 Nasal Cannula 3.0 06/08/25 11:13 32 Intake/Output Intake and Output 06/08/25 07:00 Intake Total 2040 ml Balance 2040 ml Intake Oral 1300 ml IV Total 740 ml # Voids 8 # Bowel Movements 1 Exam General Appearance: Alert, Oriented X3, Cooperative, mild distress, on O2 via NC 4L HEENT: Atraumatic, PERRLA, EOMI, Mucous membr. moist/pink Respiratory: Bilateral roncus and wheezing. Cardiovascular: Regular rate, Normal S1, Normal S2, No murmurs Abdominal: Normal bowel sounds, Soft, No tenderness, No hepatospenomegaly, No masses Extremities: No clubbing, No cyanosis, No edema, Normal pulses, No tenderness/swelling Skin: No rashes, No significant lesion Neuro: Normal gait, Strength at 5/5 X4 ext, Normal tone, Sensation intact, Cranial nerves 3-12 NL, Reflexes 2+ Psych/Mental Status: Mental status NL, Mood NL Medications Current Medications Medications Dose Ordered Sig/Oralia Route Start Time Stop Time Status Last Admin Dose Admin Metoprolol Tartrate 25 mg BID PO 06/07/25 10:00 06/08/25 09:22 25 MG Sodium Chloride 1,000 ml @ 60 mls/hr [id number] IV 06/07/25 02:00 06/08/25 11:20 60 MLS/HR Acetaminophen/ Hydrocodone Bitart 1 tab Q4HP PRN PO 06/07/25 02:00 06/07/25 14:18 1 TAB Ondansetron HCl 4 mg Q4HP PRN IV 06/07/25 02:00 Docusate Sodium 100 mg BIDPRN PRN PO 06/07/25 02:00 Acetaminophen 650 mg Q6HP PRN PO 06/07/25 02:00 Nitroglycerin 0.4 mg Q5MINP PRN SL 06/07/25 02:45 Levalbuterol HCl 1.25 mg Q6HR NEB 06/07/25 08:45 06/08/25 11:13 1.25 MG Ipratropium [place] 0.5 mg Q6HR NEB 06/07/25 08:45 06/08/25 11:13 0.5 MG Budesonide 0.25 mg BID NEB 06/07/25 10:00 06/08/25 11:13 0.25 MG Pantoprazole Sodium 40 mg DAILY IV 06/07/25 10:00 06/08/25 09:21 40 MG Doxycycline Hyclate 100 ml @ 50 mls/hr Q12HR IV 06/07/25 10:17 06/08/25 09:21 50 MLS/HR Morphine Sulfate 1 mg Q6HP PRN IV 06/07/25 15:30 06/08/25 12:00 1 MG Methylprednisolone Sodium Succinate 40 mg BID IV 06/07/25 22:00 06/08/25 09:21 40 MG Acetylcysteine 200 mg Q8HR NEB 06/07/25 22:00 06/08/25 05:49 200 MG Oseltamivir Phosphate 75 mg Q12HR PO 06/07/25 22:00 06/12/25 21:59 06/08/25 09:21 75 MG Promethazine HCl 12.5 mg Q8HR PO 06/07/25 22:00 06/08/25 15:00 12.5 MG Laboratory Results Laboratory Tests 06/08/25 06:24 Chemistry Test 06/08/25 06:24 Albumin 4.5 g/dL (3.2-4.8) Calcium Level 10.0 mg/dL (8.7-10.4) Total Protein 6.8 g/dL (5.7-8.2) LFT Test 06/08/25 06:24 Alanine Aminotransferase (ALT) 40 U/L (7-40) Alkaline Phosphatase 58 U/L (46-116) Aspartate Amino Transferase (AST) 27 U/L (13-40) Total Bilirubin 0.2 mg/dL (0.2-1.0) Urinalysis Test 06/07/25 15:00 Urine Color Light-yellow (Yellow) Urine Clarity Clear (Clear) Urine pH 6.0 (5.0-9.0) Urine Specific [place] 1.014 (1.001-1.035) Urine Protein Negative (Negative) Urine Ketones Negative (Negative) Urine Blood Negative /uL (Negative) Urine Nitrite Negative (Negative) Urine Bilirubin Negative (Negative) Urine Urobilinogen Normal mg/dL (Negative) Urine Leukocyte Esterase Negative /uL (Negative) Urine RBC <1 /hpf (0 - 3) Urine Microscopic WBC < 1 /HPF (0-3) Urine Squamous Epithelial Cells None seen /hpf (<5) Urine Bacteria Few /hpf (None Seen) H Urine Glucose Normal mg/dL (Normal) Microbiology Microbiology Date/Time Source Procedure Growth Status 06/06/25 23:14 Blood Blood Culture - Preliminary NO GROWTH AFTER 24 HOURS OF INCUBATION. Resulted Labs and/or images reviewed: Labs reviewed by me, Image(s) reviewed by me Assessment/Plan Assessment/Plan Bryson Mcguire is a 49-year-old male patient, with past medical history of childhood asthma, hypertension and hyperlipidemia. The patient came to [facility] ED with complaint of 3 days of progressively worsen dyspnea. The patient reports that he has been experiencing difficulty breathing associated with cough, wheezing, increased work of breathing. On further questioning, the patient 3 weeks of sinus infection with nasal congestion. The patient also reported recent travel where he was exposed to sick contacts on a plane. The patien reports worsen of his symptoms, this prompted his visit to the ED. In the ED the patient was seen and evaluated, his O2sat was 90% on room air, the laboratory data showed WBC 9.4, hemoglobin 13.2, BNP 32.60, D-dimer 0.26, blood pressure 115/69, heart rate 97, temperature 98.9 F, Lactic acid 1.5. Chest x- ray show no acute disease. Patient was started on IV Solu-Medrol. The patient denied chest pain, no headache, dizziness, diaphoresis, no diarrhea, nausea, vomiting, fever, no chills. Patient was admitted for further evaluation and medical management. 06/08: Mr. Year old male here with asthma acute exacerbation onset from influenza pneumonia, flu infection. Patient appears to be improving, we will continue IV antibiotics and steroids. Likely we will only need 1 more night. #Acute hypoxic respiratory failure likely due to viral pneumonia #Acute Influenza (type a positive) #Acute sinus infection #Possible acute asthma exacerbation #SIRS without AOD Influenza test positive IV fluids Oseltamivir 75mg Medneb: levalbuterol, Ipatropium, mucomyst Q4H Methylprednisolone 40mg po bid Sputum culture #Ruled out acute PE CT angiogram negative D-Dimer: negative EKG #Chronic Hypertensive heart disease with possible systolic disfunction. Metoprolol 25mg #Chronic Hyperlipidemia Atorvastatin 40mg at night #Chronic Minimal Change disease Hold prednisone due to ongoing methylprednisolone Monitor Crea/BUN Avoid neprhotoxic drugs #Obesity BMI: 32.7 Counseling about healthy life style Tele full code Plan discussed with: Patient Date of Service: Jun 08, 2025 Billing Provider: RYLAN DOWLING MD Common Visit Codes: [id number] INP/OBS CARE(HIGH) RYLAN DOWLING MD Jun 08, 2025 18:01
[2025-06-09] VITALS (11 sets, daily range): BP systolic 124–133; BP diastolic 77–90; PULSE 55–72; RESP 15–18; TEMP 36.7; O2SAT 94–100
[2025-06-09 07:16] LABS: Hematocrit 38.0 % (41.0-53.0); Hemoglobin 12.6 g/dL (13.5-17.5); Mean Corpuscular Hemoglobin 30.7 pg (28.0-32.0); Mean Corpuscular Volume 92.5 fL (80.0-100.0); Nucleated Red Blood Cells % 0.1 %
[2025-06-09 07:29] LABS: Alanine Aminotransferase 37 U/L (7-40); Alkaline Phosphatase 62 U/L (46-116); Anion Gap 9 (5-15); BUN/Creatinine Ratio 15.8 (10.0-20.0); Blood Urea Nitrogen 18 mg/dL (9-23); Calcium 9.9 mg/dL (8.7-10.4); Carbon Dioxide 26 mmol/L (20-31); Chloride 105 mmol/L (98-107); Potassium 4.6 mmol/L (3.5-5.1); Sodium 140 mmol/L (136-145); Total Protein 6.9 g/dL (5.7-8.2)
[2025-06-09 07:30] LABS: Albumin 4.6 g/dL (3.2-4.8)
[2025-06-09 07:31] LABS: Bilirubin, Total 0.2 mg/dL (0.2-1.0); Glucose 129 mg/dL (74-106)
--- NOTE | 2025-06-09 14:10 | DVHDSRES ---
Discharge Summary Date of Admission Resident Creating Document: CRUZ BRITTON RESIDENT Jun 07, 2025 at 02:35 Date of Discharge: Jun 09, 2025 Admitting Diagnosis #Acute hypoxic respiratory failure likely due to viral pneumonia #Acute pneumonia due to Influenza (type a positive) #Acute sinus infection #Possible acute asthma exacerbation #SIRS without AOD #Ruled out acute PE #Chronic Hypertensive heart disease with possible systolic disfunction. #Chronic Hyperlipidemia #Chronic Minimal Change disease #Obesity BMI: 32.7 Wounds: No wounds on admission. Labs/Diagnostic Data: Laboratory Results Test 06/09/25 06:08 06/07/25 15:00 06/07/25 13:50 06/07/25 07:20 White Blood Count 15.5 10^3/uL (4.4-10.8) Red Blood Count 4.11 10^6/uL (4.5-5.90) Hemoglobin 12.6 g/dL (13.5-17.5) Hematocrit 38.0 % (41.0-53.0) Mean Corpuscular Volume 92.5 fL (80.0-100.0) Mean Corpuscular Hemoglobin 30.7 pg (28.0-32.0) Mean Corpuscular Hemoglobin Concent 33.2 g/dL (32.0-36.0) Red Cell Distribution Width 13.4 % (11.8-14.3) Platelet Count 267 10^3/uL (140-450) Mean Platelet Volume 9.0 fL (6.9-10.8) Neutrophils (%) (Auto) 90.8 % (37.0-80.0) Lymphocytes (%) (Auto) 2.5 % (10.0-50.0) Monocytes (%) (Auto) 6.6 % (0.0-12.0) Eosinophils (%) (Auto) 0.1 % (0.0-7.0) Basophils (%) (Auto) 0.0 % (0.0-2.0) Neutrophils # (Auto) 14.1 10 ^3/uL (1.6-8.6) Lymphocytes # (Auto) 0.4 10 ^3/uL (0.4-5.4) Monocytes # (Auto) 1.0 10 ^3/uL (0-1.3) Eosinophils # (Auto) 0 10 ^3/uL (0-0.8) Basophils # (Auto) 0 10 ^3/uL (0-0.2) Nucleated Red Blood Cells 0.1 % Sodium Level 140 mmol/L (136-145) Potassium Level 4.6 mmol/L (3.5-5.1) Chloride Level 105 mmol/L (98-107) Carbon Dioxide Level 26 mmol/L (20-31) Anion Gap 9 (5-15) Blood Urea Nitrogen 18 mg/dL (9-23) Creatinine 1.14 mg/dL (0.700-1.30) Glomerular Filtration Rate Calc 78 mL/min (>90) BUN/Creatinine Ratio 15.8 (10.0-20.0) Serum Glucose 129 mg/dL (74-106) Calcium Level 9.9 mg/dL (8.7-10.4) Total Bilirubin 0.2 mg/dL (0.2-1.0) Aspartate Amino Transferase (AST) 18 U/L (13-40) Alanine Aminotransferase (ALT) 37 U/L (7-40) Alkaline Phosphatase 62 U/L (46-116) Total Protein 6.9 g/dL (5.7-8.2) Albumin 4.6 g/dL (3.2-4.8) Urine Color Light-yellow (Yellow) Urine Clarity Clear (Clear) Urine pH 6.0 (5.0-9.0) Urine Specific [place] 1.014 (1.001-1.035) Urine Protein Negative (Negative) Urine Ketones Negative (Negative) Urine Blood Negative /uL (Negative) Urine Nitrite Negative (Negative) Urine Bilirubin Negative (Negative) Urine Urobilinogen Normal mg/dL (Negative) Urine Leukocyte Esterase Negative /uL (Negative) Urine RBC <1 /hpf (0 - 3) Urine Microscopic WBC < 1 /HPF (0-3) Urine Squamous Epithelial Cells None seen /hpf (<5) Urine Bacteria Few /hpf (None Seen) Urine Glucose Normal mg/dL (Normal) Urine Opiates Screen Neg (NEGATIVE) Urine Fentanyl Screen Neg (NEGATIVE) Urine Barbiturates Screen Neg (NEGATIVE) Urine Phencyclidine Screen Neg (NEGATIVE) Urine Amphetamines Screen Neg (NEGATIVE) Urine Benzodiazepines Screen Neg (NEGATIVE) Urine Cocaine Screen Neg (NEGATIVE) Urine Cannabinoids Screen Neg (NEGATIVE) Influenza Type A Antigen Positive (Negative) Influenza Type B Antigen Negative (Negative) SARS-CoV-2 Antigen (Rapid) Negative (NEGATIVE) Magnesium Level 2.0 mg/dL (1.6-2.6) Test 06/06/25 23:08 Prothrombin Time 11.0 sec (9.3-11.8) Prothrombin Time INR 1.04 (0.9-1.15) D-Dimer, Quantitative 0.26 mg/L FEU (0.0-0.49) Lactic Acid Level 1.5 mmol/L (0.4-2.0) B-Type Natriuretic Peptide 32.60 pg/mL (0-100) Other Laboratory Tests 06/09/25 06:08 Brief Hx & Hospital Course: Bryson Mcguire is a 49-year-old male patient, with past medical history of childhood asthma, hypertension and hyperlipidemia. The patient came to [facility] ED with complaint of 3 days of progressively worsen dyspnea. The patient reports that he has been experiencing difficulty breathing associated with cough, wheezing, increased work of breathing. On further questioning, the patient 3 weeks of sinus infection with nasal congestion. The patient also reported recent travel where he was exposed to sick contacts on a plane. The patien reports worsen of his symptoms, this prompted his visit to the ED. In the ED the patient was seen and evaluated, his O2sat was 90% on room air, the laboratory data showed WBC 9.4, hemoglobin 13.2, BNP 32.60, D-dimer 0.26, blood pressure 115/69, heart rate 97, temperature 98.9 F, Lactic acid 1.5. Chest x- ray show no acute disease. Patient was started on IV Solu-Medrol. The patient denied chest pain, no headache, dizziness, diaphoresis, no diarrhea, nausea, vomiting, fever, no chills. Patient was admitted for further evaluation and medical management. Past Medical History HTN, HLD, Childhood asthma Past Surgical History Denies all surgeries Family History Reviewed, noncontributory to the management of this case. Past Social History The patient lives at home, denies smoking, alcohol or illicit drugs abuse. Hospital course: Patient was admitted due to hypoxic respiratory failure, IV antibiotic, respiratory therapy with med nebs were started. Due to low O2sat, the patient was placed on O2 via NC. The Influeza result was positive, the patient was placed in isolation and he was started on Oseltamivir. The Sputum cultures were requested and reported negative results. On his second day of admission the patient continued improving and his O2 requirements were decreasing. Today, the patient reports feeling better and expressed he want to go home due to his improvement. VS, labs and chart was reviewed. The O2 via NC was stopped. The patient tolerated well room air. Due to clinical improvement, the patient was discharge home with oral antibiotics and symptomatic treatment. The patient will follow up with PCP in 1 week. Recommendation to return to the ED in case of return of symptoms were given. The patient agreed to understanding. ROS: Constitutional: No: Fever, Chills, Sweats, Malaise, Other Eyes: No: Pain, Vision change, Conjunctivae inflammation, Eyelid inflammation, Other, Redness ENT: No: Ear pain, Ear discharge, Nose pain, Nose discharge, Nose congestion, Mouth pain, Mouth swelling, Throat pain, Throat swelling, Other Respiratory: No: Dry, SOB with excertion, Hemoptysis, Pleuritic Pain, Sputum, Wheezing Cardiovascular: No: Chest Pain, Palpitations, Orthopnea, Paroxysmal Noc. Dyspnea, Edema, Lt Headedness, Other Gastrointestinal: No: Nausea, Vomiting, Abdominal Pain, Diarrhea, Constipation, Melena, Hematochezia, Other Genitourinary: No Dysuria, No Frequency, No Incontinence, No Hematuria, No Retention, No Other Musculoskeletal: No: other, neck pain, shoulder pain, arm pain, back pain, hand pain, leg pain, foot pain Skin: No: Rash, Lesions, Jaundice, Bruising, Other Neurological: No: Weakness, Numbness, Incoordination, Change in speech, Confusion, Seizures, Other Physical Exam General Appearance: Alert, Oriented X3, Cooperative, not in distress. HEENT: Atraumatic, PERRLA, EOMI, Mucous membr. moist/pink Respiratory: normal bilateral lung expansion. No rocus or wheezing. Cardiovascular: Regular rate, Normal S1, Normal S2, No murmurs Abdominal: Normal bowel sounds, Soft, No tenderness, No hepatospenomegaly, No masses Extremities: No clubbing, No cyanosis, No edema, Normal pulses, No tenderness/swelling Skin: No rashes, No significant lesion Neuro: Normal gait, Strength at 5/5 X4 ext, Normal tone, Sensation intact, Cranial nerves 3-12 NL, Reflexes 2+ Psych/Mental Status: Mental status NL, Mood NL Operations or Procedures PROCEDURE(s): CXRP - CHEST PORTABLE REASON: SOB ORDER NUMBER(s): [id number], ACCESSION NUMBER(s): [id number] CHEST RADIOGRAPH INDICATION: SOB TECHNIQUE: Single frontal view of the chest was obtained COMPARISON: None FINDINGS: Lungs and pleural spaces are clear. Cardiac silhouette and humble are within normal limits. Bones and soft tissues demonstrate no significant abnormality. IMPRESSION: No acute disease. ATED BY: CHELSEA HIGH MD DICTATED DATE/TIME: 06/06/25 9096 PROCEDURE(s): CTACH - CT ANGIO CHEST CONTRAST REASON: sob ORDER NUMBER(s): [id number], ACCESSION NUMBER(s): [id number] CTA Chest with intravenous contrast INDICATION: sob COMPARISON: XY CHEST PORTABLE on DOS: 06/06/25 TECHNIQUE: Multidetector spiral CTA of the chest was performed of the chest with intravenous contrast. PULMONARY ANGIOGRAPHY PROTOCOL was utilized using a bolus- tracking technique centered on the main pulmonary artery. Axial, coronal and sagittal multiplanar and MIP reformats were performed. Radiation Dose : 1. Chest: CTDI volume is 27.03 mGy. Dose-length product is 1016.82 mGy*cm The dose indicators for CT are the volume Computed Tomography (CT) Dose Index (CTDIvol) and the Dose Length Product (DLP), and are measured in units of mGy and mGy-cm, respectively. These indicators are not patient dose, but values generated from the CT scanner acquisition factors. The report includes radiation exposure data for exposures received during this examination. FINDINGS: Pulmonary artery: No pulmonary embolism Lower neck: Normal thyroid. Lungs: No focal consolidation, pleural effusion or pneumothorax. Heart/Vascular Structures: Normal heart size. No pericardial effusion. Lymph Nodes: No adenopathy Pleura: No pleural effusion or significant pneumothorax. Musculoskeletal: No acute osseous abnormality. Soft tissues: Normal. Upper abdomen: Limited portions of the upper abdomen are unremarkable. IMPRESSION: No pulmonary embolus or other acute abnormality. ATED BY: CHELSEA HIGH MD DICTATED DATE/TIME: 06/07/25 0126 Condition at Discharge: Stable Final Diagnosis/Problems List #Acute hypoxic respiratory failure likely due to viral pneumonia #Acute pneumonia due to Influenza (type a positive) #Acute sinus infection #Possible acute asthma exacerbation #SIRS without AOD #Ruled out acute PE #Chronic Hypertensive heart disease with possible systolic disfunction. #Chronic Hyperlipidemia #Chronic Minimal Change disease #Obesity BMI: 32.7 Discharge Disposition: Home SNF Discharge Will this Physician continue t: No Discharge Instruct/Medications Diet: Consistent carbohydrate, Cardiac 2g Na,low cholest Follow Up/Referral: F/U with PCP in 1 week D/C clinic Scheduled Azithromycin (Azithromycin), 1 TAB PO DAILY Fluticasone Propionate (Nasal) (Fluticasone Propionate Na), 50 MCG NA BID Oseltamivir Phosphate (Tamiflu), 1 CAP PO BID Prednisone (Prednisone), 40 MG PO DAILY Scheduled PRN Albuterol Sulfate (Ventolin Mdi), 90 MCG IN Q4HP PRN Promethazine-Dm (Promethazine Dm 6.25-15 mg/5Ml), 1 RUBY PO Q8HP PRN Tramadol Hcl (Tramadol Hcl), 50 MG PO TID PRN, (Reported) Miscellaneous Medications Tramadol Hcl (Tramadol Hcl), 50 MG PO, (Reported) Discontinued Medications Tramadol HCl (Tramadol HCl), 50 MG PO Q8HPRN PRN, (Reported) Tramadol Hcl (Tramadol Hcl), 50 MG PO TID PRN, (Reported) Discharge Statement: "Patient was advised to return to the ER or call 911 if any headaches, dizziness, shortness of breath, chest pain, abdominal pain, bleeding, fevers, or worsening of medical condition. Patient was counseled about treatment plan, medications, possible side effects, patientverbalized understanding. All questions were answered to the best of my ability. This discharge took greater then 30 minutes in planning, reviewing documentation, counseling the patient, and discussing with other team members." ASSESSMENT ASSESSMENT Assessment #Acute hypoxic respiratory failure likely due to viral pneumonia #Acute pneumonia due to Influenza (type a positive) #Acute sinus infection #Possible acute asthma exacerbation #SIRS without AOD #Ruled out acute PE #Chronic Hypertensive heart disease with possible systolic disfunction. #Chronic Hyperlipidemia #Chronic Minimal Change disease #Obesity BMI: 32.7 Code status: full code Disposition: Home PCP: Dr. Macario Patient's status and discharge plan discussed with the patient >30min. Case discussed with Dr. Loredo Visit Coding STANDARD RES Billing Provider: RYLAN DOWLING MD Date of Service if different f: Jun 09, 2025 Common Visit Codes: 28387-MXM/OBS DISCH DAY >30min CRUZ BRITTON RESIDENT Jun 09, 2025 14:10
[2025-06-09] MEDS ORDERED: TRAM50TA2 PO ×3 (14:27→17:22)
[2025-06-09] MEDS ORDERED: ALBUAER3 IN ×2 (14:29→15:39)
[2025-06-09] MEDS ORDERED: TAMIF30 PO (14:29)
[2025-06-09] MEDS ORDERED: FLUT1SPR21 (14:29)
[2025-06-09] MEDS ORDERED: AZITTAB PO (14:29)
[2025-06-09] MEDS: KETOROLAC TROMETH 30 MG/ML 1ML VIAL IV ONE (14:40)
[2025-06-09] MEDS ORDERED: PRED20TA2 PO (15:39)
[2025-06-09] MEDS ORDERED: PROM1SOL4 PO (15:39)
[2025-06-09] MEDS ORDERED: AZIT500T66 PO (15:39)
[2025-06-09] MEDS ORDERED: FLUT50SP31 (15:39)
[2025-06-09] MEDS ORDERED: OSEL75CA5 PO (15:39)
[2025-06-09] MEDS ORDERED: TRAM-626 PO ×2 (15:40→18:56)
== END 2025-06-09 18:25 | disposition home or self-care (01) | DRG 193 ==
LOC: ER 22:27 → OVERFLOW 06-07 02:35 → TELE-WESTW 06-07 04:52 → TELE-CENTR 06-07 15:30
PROVIDERS: ADMIT Student in an Organized Health Care Education/Training Program; ATTEND Student in an Organized Health Care Education/Training Program
DX: J10.08 Influenza due to other identified influenza virus with other specified pneumonia (principal); J96.01 Acute respiratory failure with hypoxia; I50.22 Chronic systolic (congestive) heart failure; R65.10 Systemic inflammatory response syndrome (SIRS) of non-infectious origin without acute organ dysfunction; J12.9 Viral pneumonia, unspecified; J01.90 Acute sinusitis, unspecified; J45.901 Unspecified asthma with (acute) exacerbation; Z68.32 Body mass index [BMI] 32.0-32.9, adult; I11.9 Hypertensive heart disease without heart failure; J45.909 Unspecified asthma, uncomplicated; E66.9 Obesity, unspecified; E78.5 Hyperlipidemia, unspecified; Z20.822 Contact with and (suspected) exposure to COVID-19; Z88.6 Allergy status to analgesic agent; Z87.09 Personal history of other diseases of the respiratory system
CPT/HCPCS: 36415; 71045; 71275; 80053; 80307; 81001; 83605; 83735; 83880; 85025; 85379; 85610; 87040; 87081; 87426; 87804; 93005; 94640; 96372; 96374; 96375; G0378; J2405; J2470